=== PATIENT | female | born 1975 | race Caucasian/White ===

== ENCOUNTER 2016-02-14 10:58 | Emergency (ER) | payer OTHER ==
[2016-02-14 12:22] VITALS: BP 144/91
[2016-02-14] MEDS ORDERED: Lidocaine 2% VISCOUS* 15 ML UDC PO ONE ×2 (12:44→12:49)
--- NOTE | 2016-02-14 13:06 | UC ---
Throat Pain/Nasal Jordan HPI - HPI Summary HPI Summary: Patient with a CC of throat pain, nasal congestion, R ear pain and cough. She also notes to losing her voice over the last few days and was sent home from work this am. Denies abdominal symptoms. patient is a smoker and asthmatic. she has been using her rescue inhaler more frequently over the last few days but feels it is not working as it is over 1 year old. - History of Current Complaint Chief Complaint: UCRespiratory Stated Complaint: THROAT,EARS Hx Obtained From: Patient Hx Last Menstrual Period: 02/06/16 ?: No Onset/Duration: Gradual Onset Severity: Moderate Pain Intensity: 5 Pain Scale Used: 0-10 Numeric Cough: Nonproductive Associated Signs & Symptoms: Positive: Dysphagia - painful, Hoarseness, Nasal Discharge - Epiglottits Risk Factors Epiglottis Risk Factors: Negative - Allergies/Home Medications Allergies/Adverse Reactions: Allergies Allergy/AdvReac Type Severity Reaction Status Date / Time Phenobarbital Allergy Anaphylatic Verified 02/14/16 12:13 Shock Doxycycline AdvReac N/V Verified 02/14/16 12:13 Erythromycin AdvReac GI Upset Verified 02/14/16 12:13 Morphine AdvReac Insomnia Verified 02/14/16 12:13 Tetracycline AdvReac N/V Verified 02/14/16 12:13 Home Medications: Home Medications Naproxen Sodium 220 mg PO BID 02/14/16 [History Confirmed 02/14/16] PMH/Surg Hx/FS Hx/Imm Hx Endocrine History Of: Denies: Diabetes, Thyroid Disease, Hyperthyroidism, Hypothyroidism, Dyslipidemia Cardiovascular History Of: Denies: Cardiac Disorders, Hypertension, Pacemaker/ICD, Myocardial Infarction , Congestive Heart Failure, Atrial Fibrillation, Deep Vein Thrombosis, Bleeding Disorders Respiratory History Of: Reports: Asthma - HX OF, Bronchitis - HX OF GI/ History Of: Reports: Gastroesophageal Reflux - Had been on Nexium for this. But, recently has stopped. Denies: Ulcer, Gastrointestinal Bleed, Gall Bladder Disease, Kidney Stones, Diverticulitis, Renal Disease, Urosepsis Neurological History Of: Denies: TIA, CVA, Dementia, Seizures, Migraine Psychological History Of: Reports: Anxiety, Depression, Post Traumatic Stress Disorder Denies: Bipolar Disorder, Schizophrenia Cancer History Of: Reports: Cervical Cancer Denies: Lung Cancer, Colorectal Cancer, Breast Cancer, Prostate Cancer Other History Of: Negative For: HIV, Hepatitis B, Hepatitis C, Anticoagulant Therapy - Surgical History Surgical History: Yes Surgery Procedure, Year, and Place: 3 C-SECTIONS, last C section 10/2013. TONSILLECTOMY. ENDOMETRIOSIS SURGERY. Tubal 10/31/13. DENTAL. D & C. tonsillectomy - Family History Known Family History: Positive: None, Cardiac Disease, Diabetes - Social History Occupation: Employed Full-time Lives: With Family Alcohol Use: Rare Substance Use Type: None Smoking Status (MU): Heavy Every Day Tobacco Smoker Type: Cigarettes Amount Used/How Often: 1/2 ppd Length of Time of Smoking/Using Tobacco: 20+ years Have You Smoked in the Last Year: Yes Household Exposure Type: Cigarettes - Immunization History Most Recent Influenza Vaccination: unknown Most Recent Tetanus Shot: needs Most Recent Pneumonia Vaccination: none Review of Systems Constitutional: Negative Skin: Negative Eyes: Negative ENT: Sore Throat, Ear Ache, Nasal Discharge Respiratory: Shortness Of Breath, Cough Cardiovascular: Negative Gastrointestinal: Negative Neurovascular: Negative Neurological: Negative, Headache All Other Systems Reviewed And Are Negative: Yes Physical Exam Triage Information Reviewed: Yes Appearance: Well-Appearing, No Pain Distress, Well-Nourished Vital Signs: Initial Vital Signs Temp 99 F 02/14/16 12:15 Pulse 89 02/14/16 12:15 Resp 18 02/14/16 12:15 BP 144/91 02/14/16 12:15 Pulse Ox 100 02/14/16 12:15 Vital Signs Reviewed: Yes Eye Exam: Normal Eyes: Positive: Conjunctiva Clear ENT Exam: Normal ENT: Positive: Normal ENT inspection, Pharynx normal, TMs normal Dental Exam: Normal Neck exam: Normal Neck: Positive: Supple, Nontender, No Lymphadenopathy Respiratory Exam: Normal Respiratory: Positive: Chest non-tender, Lungs clear Cardiovascular Exam: Normal Musculoskeletal Exam: Normal Neurological Exam: Normal Psychological Exam: Normal Psychological: Positive: Normal Response To Family, Age Appropriate Behavior Skin Exam: Normal Throat Pain/Nasal Course/Dx - Course Course Of Treatment: Patient given POCT rapid. Negative result. Sent for Chest xray. viscous lidocaine given for sore throat. xray negative. patient treated with albuterol rescue, duoneb, viscous lidocaine and 10 day tapering prednisone. Assessment/Plan: Follow up with PCP. OFf work for 2 days. Voice rest. - Differential Dx/Diagnosis Differential Diagnosis/HQI/PQRI: Influenza, Pharyngitis, URI Provider Diagnoses: Laryngitis - Physician Notification/Consults Instructed by Provider To: Have Pt Call For Appt. Discharge - Discharge Plan Condition: Stable Disposition: HOME Prescriptions: Albuterol HFA INHALER* [Ventolin HFA Inhaler*] 1 puff INH Q4H PRN #1 mdi PRN Reason: Cough Albuterol/Ipratropium NEB.JORDI* [Duoneb NEB.JORDI*] 1 neb INH Q4H #1 neb.soln Lidocaine 2% VISCOUS* 15 ml MT BID #150 btl predniSONE TAB* [Deltasone TAB*] 10 mg PO DAILY #34 tab Patient Education Materials: Laryngitis (ED) Forms: *Work Release Referrals: No Primary Care Phys,NOPCP [Primary Care Provider] - Additional Instructions: Hot tea, honey, lemon, humidifier. Try not to use your voice over the next few days. Rest. Return to UC or go to ER if you develop worsening SOB
--- NOTE | 2016-02-14 13:15 | RAD ---
HISTORY: Cough, shortness of breath COMPARISONS: Report dated December 03, 2006 VIEWS: 2: Frontal dual-energy and lateral views of the chest. FINDINGS: CARDIOMEDIASTINAL SILHOUETTE: The cardiomediastinal silhouette is normal. THOMPSON: The thompson are normal. PLEURA: The costophrenic angles are sharp. No pleural abnormalities are noted. LUNG PARENCHYMA: The lungs are clear. ABDOMEN: The upper abdomen is clear. There is no subphrenic gas. BONES AND SOFT TISSUES: No bone or soft tissue abnormalities are noted. OTHER: None. IMPRESSION: NO ACTIVE CARDIOPULMONARY DISEASE.
== END 2016-02-14 13:56 | disposition home or self-care (01) ==
LOC: UCCORT 10:58
DX: J04.0 Acute laryngitis (principal); F17.210 Nicotine dependence, cigarettes, uncomplicated; Z88.3 Allergy status to other anti-infective agents; Z88.5 Allergy status to narcotic agent; Z88.8 Allergy status to other drugs, medicaments and biological substances
CPT/HCPCS: 71020; 87651; 99212; G0463

== ENCOUNTER 2016-08-14 20:42 | Emergency (ER) | payer OTHER ==
[2016-08-14 20:55] VITALS: BP 143/73
--- NOTE | 2016-08-14 21:11 | UC ---
Throat Pain/Nasal Jordan HPI - HPI Summary HPI Summary: complaint of intermittent headaches and left ear pain for approx4 days nasal congestion feels fatigued nauseated today and vomited 1x d/t coughing so she called off work and needs a note used her inhaler for cough with relief took some naproxen with relief of headache - History of Current Complaint Chief Complaint: UCGeneralIllness Stated Complaint: HEADACHE Time Seen by Provider: 08/14/16 20:58 Hx Obtained From: Patient Hx Last Menstrual Period: 02/06/16 - Allergies/Home Medications Allergies/Adverse Reactions: Allergies Allergy/AdvReac Type Severity Reaction Status Date / Time Phenobarbital Allergy Anaphylatic Verified 08/14/16 20:55 Shock Doxycycline AdvReac N/V Verified 08/14/16 20:55 Erythromycin AdvReac GI Upset Verified 08/14/16 20:55 Morphine AdvReac Insomnia Verified 08/14/16 20:55 Tetracycline AdvReac N/V Verified 08/14/16 20:55 PMH/Surg Hx/FS Hx/Imm Hx Previously Healthy: Yes Respiratory History: Asthma Neurological History: Migraine Other History Of: Negative For: HIV, Hepatitis B, Hepatitis C, Anticoagulant Therapy - Surgical History Surgical History: Yes Surgery Procedure, Year, and Place: 3 C-SECTIONS, last C section 10/2013. TONSILLECTOMY. ENDOMETRIOSIS SURGERY. Tubal 10/31/13. DENTAL. D & C. tonsillectomy - Family History Known Family History: Positive: None, Cardiac Disease, Diabetes - Social History Occupation: Employed Full-time Lives: With Family Alcohol Use: Rare Substance Use Type: None Smoking Status (MU): Light Every Day Tobacco Smoker Type: Cigarettes Amount Used/How Often: 1/2 ppd Length of Time of Smoking/Using Tobacco: 20+ years Have You Smoked in the Last Year: Yes Household Exposure Type: Cigarettes - Immunization History Most Recent Influenza Vaccination: unknown Most Recent Tetanus Shot: needs Most Recent Pneumonia Vaccination: none Review of Systems Constitutional: Negative Skin: Negative Eyes: Negative ENT: Ear Ache, Nasal Discharge Respiratory: Cough Cardiovascular: Negative Gastrointestinal: Negative Genitourinary: Negative Motor: Negative Neurovascular: Negative Musculoskeletal: Negative Neurological: Headache Psychological: Negative All Other Systems Reviewed And Are Negative: Yes Physical Exam Triage Information Reviewed: Yes Appearance: No Pain Distress, Well-Nourished Vital Signs: Initial Vital Signs Temp 99.5 F 08/14/16 20:50 Pulse 88 08/14/16 20:50 Resp 18 08/14/16 20:50 BP 143/73 08/14/16 20:50 Pulse Ox 99 08/14/16 20:50 Vital Signs Reviewed: Yes Eyes: Positive: Conjunctiva Clear, Other: - PERRL ENT: Positive: Pharyngeal erythema, Nasal congestion, TM bulging - bilaterally. Negative: TM red, Tonsillar swelling, Tonsillar exudate Neck: Positive: No Lymphadenopathy Respiratory: Positive: Lungs clear, Normal breath sounds, No respiratory distress, No accessory muscle use Cardiovascular: Positive: RRR, No Murmur, Pulses Normal, Brisk Capillary Refill Abdomen Description: Positive: Nontender, No Organomegaly, Soft Bowel Sounds: Positive: Present Musculoskeletal: Positive: No Edema Neurological: Positive: Alert Psychological Exam: Normal Skin Exam: Normal Throat Pain/Nasal Course/Dx - Course Course Of Treatment: exam completed. esutachion tube dysfunction , URI - Differential Dx/Diagnosis Provider Diagnoses: eustachion tube dysfunction. URI Discharge - Discharge Plan Condition: Stable Disposition: HOME Prescriptions: Fluticasone NASAL SPRAY 50MCG* [Flonase NASAL SPRAY 50MCG*] 2 spray BOTH NARES DAILY #1 btl Patient Education Materials: Earache (ED), Upper Respiratory Infection (ED) Forms: *Work Release Referrals: No Primary Care Phys,NOPCP [Primary Care Provider] - [facility] [Outside] Additional Instructions: Please start flonase as directed Increase fluids and rest Take acetaminophen or ibuprofen for fever or pain Please review your discharge instructions. If your symptoms do not improve please call your primary care provider or return to urgent care.
== END 2016-08-14 21:26 | disposition home or self-care (01) ==
LOC: UCCORT 20:42
DX: H69.92 Unspecified Eustachian tube disorder, left ear (principal); F17.210 Nicotine dependence, cigarettes, uncomplicated
CPT/HCPCS: 99212; G0463

== ENCOUNTER 2018-01-07 10:31 | Emergency (ER) | payer OTHER ==
[2018-01-07 11:06] VITALS: BP 151/97
--- NOTE | 2018-01-07 11:47 | UC ---
Throat Pain/Nasal Jordan HPI - HPI Summary HPI Summary: Pt presents with c/o productive cough, nasal congestion, sinus pressure, fever, chills, malaise X 10 days. - History of Current Complaint Chief Complaint: UCGeneralIllness Stated Complaint: UPPER RESPIRATORY COMPLAINT Time Seen by Provider: 01/07/18 11:37 Hx Obtained From: Patient Hx Last Menstrual Period: 12/22/17 ?: No Onset/Duration: Gradual Onset, Lasting Days, Still Present Severity: Moderate Pain Intensity: 6 Cough: Productive Associated Signs & Symptoms: Positive: Wheezing, Sinus Discomfort, Fever Related History: Smoking - Epiglottits Risk Factors Epiglottis Risk Factors: Negative - Allergies/Home Medications Allergies/Adverse Reactions: Allergies Allergy/AdvReac Type Severity Reaction Status Date / Time doxycycline Allergy GI Upset Verified 01/07/18 11:01 erythromycin base Allergy GI Upset Verified 01/07/18 11:01 morphine Allergy Insomnia Verified 01/07/18 11:01 phenobarbital Allergy Anaphylatic Verified 01/07/18 11:01 Shock Tetracyclines Allergy GI Upset Verified 01/07/18 11:01 Home Medications: Home Medications Meloxicam [Mobic] 15 mg PO DAILY PRN 01/07/18 [History Confirmed 01/07/18] PMH/Surg Hx/FS Hx/Imm Hx Previously Healthy: Yes Other History Of: Negative For: HIV, Hepatitis B, Hepatitis C, Anticoagulant Therapy - Surgical History Surgical History: Yes Surgery Procedure, Year, and Place: 3 C-SECTIONS, last C section 10/2013. TONSILLECTOMY. ENDOMETRIOSIS SURGERY. Tubal 10/31/13. DENTAL. D & C. tonsillectomy - Family History Known Family History: Positive: None, Cardiac Disease, Diabetes - Social History Occupation: Employed Full-time Lives: With Family Alcohol Use: Rare Substance Use Type: None Smoking Status (MU): Light Every Day Tobacco Smoker Type: Cigarettes Amount Used/How Often: 1/4 ppd Length of Time of Smoking/Using Tobacco: 25 years Have You Smoked in the Last Year: Yes Household Exposure Type: Cigarettes - Immunization History Most Recent Influenza Vaccination: unknown Most Recent Tetanus Shot: needs Most Recent Pneumonia Vaccination: none Review of Systems All Other Systems Reviewed And Are Negative: Yes Constitutional: Positive: Fatigue Skin: Positive: Negative Eyes: Positive: Negative ENT: Positive: Sore Throat, Sinus Congestion, Sinus Pain/Tenderness Respiratory: Positive: Cough Cardiovascular: Positive: Negative Gastrointestinal: Positive: Negative Genitourinary: Positive: Negative Motor: Positive: Negative Neurovascular: Positive: Negative Musculoskeletal: Positive: Myalgia Neurological: Positive: Headache Psychological: Positive: Negative Is Patient Immunocompromised?: No Physical Exam Triage Information Reviewed: Yes Appearance: Ill-Appearing Vital Signs: Initial Vital Signs Temp 98.7 F 01/07/18 11:01 Pulse 88 01/07/18 11:01 Resp 16 01/07/18 11:01 BP 151/97 01/07/18 11:01 Pulse Ox 99 01/07/18 11:01 Vital Signs Reviewed: Yes Eye Exam: Normal ENT: Positive: Nasal congestion, TM bulging, Sinus tenderness Dental Exam: Normal Neck exam: Normal Respiratory Exam: Normal Cardiovascular Exam: Normal Musculoskeletal Exam: Normal Neurological Exam: Normal Psychological Exam: Normal Skin Exam: Normal Throat Pain/Nasal Course/Dx - Differential Dx/Diagnosis Differential Diagnosis/HQI/PQRI: Influenza, Otitis Media, Sinusitis, Tonsillitis Provider Diagnosis: Sinusitis nasal Discharge - Sign-Out/Discharge Documenting (check all that apply): Patient Departure All imaging exams completed and their final reports reviewed: No Studies - Discharge Plan Condition: Stable Disposition: HOME Prescriptions: Albuterol HFA INHALER* [Ventolin HFA Inhaler*] 1 - 2 puff INH Q6H PRN #1 mdi PRN Reason: Sob/Wheezing Amoxicillin PO (*) [Amoxicillin 875 MG (*)] 875 mg PO Q12H #20 tab Montelukast Sodium TAB* [Singulair 10 MG TAB*] 10 mg PO DAILY #10 tab Patient Education Materials: Sinusitis (ED), Acute Cough (ED) Referrals: Christoph Flanagan MD [Primary Care Provider] - As Soon As Possible - Billing Disposition and Condition Condition: STABLE Disposition: Home - Attestation Statements Provider Attestation: Per institutional requirements, I have reviewed the chart, however, I was not consulted specifically or made aware of this patient by the midlevel provider. I did not personally evaluate, interact with , or disposition this patient.
== END 2018-01-07 11:58 | disposition home or self-care (01) ==
LOC: UCCORT 10:31
DX: J32.9 Chronic sinusitis, unspecified (principal); Z88.1 Allergy status to other antibiotic agents; Z88.5 Allergy status to narcotic agent; F17.210 Nicotine dependence, cigarettes, uncomplicated
CPT/HCPCS: 99212; G0463